=== PATIENT | female | born 1995 | race African-American/Black ===

== ENCOUNTER 2021-08-16 16:57 | Inpatient (IN) ==
[2021-08-16] MEDS ORDERED: LACTATED RINGERS 1,000 ML IV ONE ×2 (17:37→19:25)
[2021-08-16] MEDS ORDERED: BUTORPHANOL 2 MG/ML VIAL IV ONE (17:44)
[2021-08-16] MEDS ORDERED: OXYTOCIN/LR 20 UNIT/1,000 ML BAG IV ONE (18:08)
[2021-08-16] MEDS ORDERED: TRANEXAMIC ACID 1,000 MG in SODIUM CHLORIDE 0.9% 100 ML IV PRN (18:08)
[2021-08-16] MEDS ORDERED: METHYLERGONOVINE 0.2 MG/1 ML AMP IM PRN (18:08)
[2021-08-16] MEDS ORDERED: CARBOPROST TROMETHAMINE 250 MCG/ML AMP IM PRN (18:08)
[2021-08-16] MEDS ORDERED: miSOPROStoL 200 MCG TABLET RECTAL PRN (18:08)
[2021-08-16] MEDS ORDERED: ONDANSETRON 4 MG/2 ML VIAL IV PRN (18:08)
[2021-08-16] MEDS ORDERED: LACTATED RINGERS 1,000 ML IV SCH ×3 (18:30→19:30)
[2021-08-16 18:53] LABS: Basophils % 0.2 % (0.0-0.8); Eosinophils % 0.2 % (0.00-10.9); Hemoglobin 10.9 GM/DL (12.0-16.0); Immature Granulocytes % 0.4 %; Immature Granulocytes Absolute 0.08 #; Lymphocytes % 16.4 % (21.3-54.2); Mean Corpuscular Volume 83.5 FL (87-102); Mean Platelet Volume 9.9 FL (9.6-12.0); Monocytes # 1.4 10*3/uL (0.11-0.8); Monocytes % 7.8 % (1.7-12.7); Platelet Count 342 T/CUMM (130-400); Red Blood Count 3.95 MC/CUMM (3.8-5.5); Red Cell Distribution Width 14.5 % (9.3-17.3); White Blood Count 18.4 T/CUMM (4-12)
[2021-08-16] MEDS ORDERED: PROMETHAZINE 25 MG/1 ML VIAL IM ONE (19:25)
[2021-08-16] MEDS ORDERED: hydrOXYzine HCL 25 MG/1 ML VIAL IM PRN (19:25)
[2021-08-16] MEDS ORDERED: FAMOTIDINE 20 MG/2 ML VIAL IV ONE (19:25)
[2021-08-16] MEDS ORDERED: ePHEDrine 50 MG/ML VIAL IV PRN (19:25)
[2021-08-16] MEDS ORDERED: NALOXONE 0.4 MG/ML VIAL IV PRN (19:25)
[2021-08-16] MEDS ORDERED: diphenhydrAMINE 50 MG/1 ML VIAL IV PRN ×2 (19:25)
[2021-08-16] MEDS ORDERED: CITRIC ACID/SODIUM CITRATE 30 ML UDCUP PO ONE (19:25)
[2021-08-16] MEDS ORDERED: LACTATED RINGERS 250 ML IV PRN (19:25)
[2021-08-16] MEDS ORDERED: ONDANSETRON 4 MG/2 ML VIAL IV ONE (19:25)
[2021-08-16] MEDS ORDERED: LACTATED RINGERS 500 ML IV ONE (19:25)
[2021-08-16] MEDS ORDERED: fentaNYL 2 MCG/ROPIV 0.2% EPID 100 ML EPIDURAL SCH (19:30)
[2021-08-16] MEDS ORDERED: OXYTOCIN/LR 20 UNIT/1,000 ML BAG IV SCH (22:00)
[2021-08-16 22:30] LABS: Mucus,Urine Occasional /LPF (Occasional); RBC,Urine <1 /HPF (0-4); Squamous Epithelial Cell,Urine Occasional /HPF (0-10); Urine Color Yellow (Yellow)
[2021-08-16 22:31] LABS: Bilirubin,Urine Negative (Negative); Blood, Urine Trace mg/dL (Negative); Glucose,Urine (UA) Negative (Negative); Ketones,Urine >=160 mg/dL (Negative); Nitrite,Urine Negative (Negative); Protein,Urine Negative (Negative); Urine Appearance Clear (Clear); Urine Urobilinogen 0.2 eU/dL (<2.0); Urine pH 6.5 (4.5-8.0)
[2021-08-17 07:21] LABS: Cord Arterial Blood HCO3 21.2 MMOL/L
[2021-08-17 07:24] LABS: Cord Venous Blood HCO3 23.2 MMOL/L; Cord Venous Blood PCO2 47.7 MMHG; Cord Venous Blood PO2 27.6
[2021-08-17] MEDS ORDERED: RHO(D) IMMUNE GLOBULIN 300 MCG SYRINGE IM ONE (07:24)
[2021-08-17] MEDS ORDERED: WITCH HAZEL PADS 100/JAR TOP PRN (07:24)
[2021-08-17] MEDS ORDERED: ACETAMINOPHEN 325 MG TABLET PO PRN (07:24)
[2021-08-17] MEDS ORDERED: LANOLIN 50% CREAM 0.3 OZ TUBE TOP PRN (07:24)
[2021-08-17] MEDS ORDERED: OXYTOCIN/LR 20 UNIT/1,000 ML BAG IV ONE (07:24)
[2021-08-17] MEDS ORDERED: BISACODYL 10 MG SUPP RECTAL PRN (07:24)
[2021-08-17] MEDS ORDERED: ONDANSETRON 4 MG/2 ML VIAL IV PRN (07:24)
[2021-08-17] MEDS ORDERED: HYDROCORTISONE 2.5% RECTAL CREAM 30 GM TUBE TOP PRN (07:24)
[2021-08-17] MEDS ORDERED: oxyCODONE/ACETAMINOPHEN 5-325 MG TABLET PO PRN (07:24)
[2021-08-17] MEDS ORDERED: DIPH/TET/ACEL PERT BOOSTER VACCINE 0.5 ML VIAL IM ONE (07:24)
[2021-08-17] MEDS ORDERED: MEASLES/MUMPS/RUBELLA VACCINE 0.5 ML VIAL SUBCUT ONE (07:24)
[2021-08-17] MEDS ORDERED: BENZOCAINE 20%/MENTHOL 0.5% SPRAY 56 GM CAN TOP PRN (07:24)
[2021-08-17] MEDS: IBUPROFEN 800 MG TABLET PO PRN ×2 (08:49→20:55)
[2021-08-17] MEDS: oxyCODONE/ACETAMINOPHEN 5-325 MG TABLET PO PRN (13:27)
[2021-08-17] MEDS: DOCUSATE SODIUM 100 MG CAPSULE PO SCH (20:55)
[2021-08-18 05:33] LABS: Basophils % 0.2 % (0.0-0.8); Eosinophils # 0.2 10*3/uL (0.0-0.87); Eosinophils % 1.1 % (0.00-10.9); Hematocrit 31.6 VOL% (35.7-47.0); Immature Granulocytes % 0.4 %; Immature Granulocytes Absolute 0.06 #; Lymphocytes # 3.5 10*3/uL (1.4-4.0); Mean Corpuscular HGB Conc 31.6 GM/DL (32-36); Mean Corpuscular Volume 85.6 FL (87-102); Mean Platelet Volume 10.7 FL (9.6-12.0); Monocytes # 1.4 10*3/uL (0.11-0.8); Neutrophils % 66.3 % (38.7-73.9); Platelet Count 338 T/CUMM (130-400); Red Blood Count 3.69 MC/CUMM (3.8-5.5); Red Cell Distribution Width 14.7 % (9.3-17.3); White Blood Count 15.4 T/CUMM (4-12)
[2021-08-18] MEDS ORDERED: MAGNESIUM HYDROXIDE SUSP 30 ML UDCUP PO PRN (08:37)
[2021-08-18] MEDS: DOCUSATE SODIUM 100 MG CAPSULE PO SCH ×2 (08:55→20:34)
[2021-08-18] MEDS: IBUPROFEN 800 MG TABLET PO PRN ×3 (08:56→23:52)
[2021-08-18] MEDS: oxyCODONE/ACETAMINOPHEN 5-325 MG TABLET PO PRN ×2 (08:58→17:02)
[2021-08-19] MEDS: IBUPROFEN 800 MG TABLET PO PRN (06:16)
[2021-08-19 08:14] VITALS: BP 136/76
[2021-08-19] MEDS: DOCUSATE SODIUM 100 MG CAPSULE PO SCH (08:59)
== END 2021-08-19 11:55 | disposition home or self-care (01) | DRG 807 ==
LOC: N.LDOUT 16:57 → N.LD 16:58 → N.OB 08-17 10:58
PROVIDERS: ADMIT Student in an Organized Health Care Education/Training Program; ATTEND Student in an Organized Health Care Education/Training Program